=== PATIENT | female | born 1935 | race Asian ===

== ENCOUNTER 2019-02-11 15:45 | Observation (INO) | payer MEDICARE, OTHER ==
[2019-02-11] MEDS ORDERED: ALTEPLASE (CATHFLO) 2 MG INJ CATHETER ×2 (19:00)
[2019-02-11 19:26] LABS: ADD MAN DIFF? NO
[2019-02-11 19:29] LABS: WHITE BLOOD COUNT 7.3 10^3/ul (4.8-10.8)
[2019-02-11 19:29] LABS: BASOPHIL # 0.1 10^3/ul (0.0-0.1); BASOPHILS % 0.7 % (0.0-2.0); EOSINOPHILS # 0.5 10^3/ul (0.0-0.5); EOSINOPHILS % 6.3 % (0.0-7.0); HEMATOCRIT 39.3 % (37.0-47.0); HEMOGLOBIN 12.5 g/dl (12.0-16.0); LYMPHOCYTES # 2.1 10^3/ul (0.8-2.9); LYMPHOCYTES % 28.2 % (15.0-51.0); MEAN CORPUSCULAR HEMOGLOBIN 31.6 pg (29.0-33.0); MEAN CORPUSCULAR HGB CONC 31.8 g/dl (32.0-37.0); MEAN CORPUSCULAR VOLUME 99.5 fl (82.0-101.0); MEAN PLATELET VOLUME 9.5 fl (7.4-10.4); MONOCYTE # 0.6 10^3/ul (0.3-0.9); MONOCYTES % 8.4 % (0.0-11.0); NEUTROPHIL # 4.1 10^3/ul (1.6-7.5); NEUTROPHILS % 55.6 % (39.0-77.0); PLATELET COUNT 165 10^3/UL (140-415); RED BLOOD COUNT 3.95 10^6/ul (4.20-5.40); RED CELL DISTRIBUTION WIDTH 15.8 % (11.5-14.5)
[2019-02-11 19:46] LABS: ANION GAP 10 (5-13); BLOOD UREA NITROGEN 49 mg/dl (7-20); CALCIUM 9.2 mg/dl (8.4-10.2); CARBON DIOXIDE 25 mmol/L (21-31); CHLORIDE 102 mmol/L (97-110); CREATININE 6.32 mg/dl (0.44-1.00); GLUCOSE 217 mg/dl (70-220); SODIUM 137 mmol/L (135-144)
[2019-02-11 19:48] LABS: INR 1.31; PROTIME 16.4 Sec (11.9-14.9); PT RATIO 1.3
[2019-02-11] MEDS ORDERED: ACETAMINOPHEN 325 MG TAB PO (21:00)
[2019-02-11] MEDS ORDERED: ONDANSETRON 4 MG INJ IV (21:00)
[2019-02-12] MEDS ORDERED: NACL 0.9% 3 ML SYG IV
[2019-02-12] MEDS ORDERED: ONDANSETRON 4 MG INJ IV
[2019-02-12] MEDS: FUROSEMIDE 20 MG TAB PO ×3 (00:31→17:47)
[2019-02-12 05:44] LABS: ADD MAN DIFF? NO
[2019-02-12 05:46] LABS: BASOPHIL # 0.1 10^3/ul (0.0-0.1); BASOPHILS % 1.1 % (0.0-2.0); EOSINOPHILS # 0.7 10^3/ul (0.0-0.5); EOSINOPHILS % 10.1 % (0.0-7.0); HEMATOCRIT 38.6 % (37.0-47.0); HEMOGLOBIN 12.4 g/dl (12.0-16.0); LYMPHOCYTES # 1.7 10^3/ul (0.8-2.9); LYMPHOCYTES % 25.3 % (15.0-51.0); MEAN CORPUSCULAR HEMOGLOBIN 31.6 pg (29.0-33.0); MEAN CORPUSCULAR HGB CONC 32.1 g/dl (32.0-37.0); MEAN CORPUSCULAR VOLUME 98.2 fl (82.0-101.0); MONOCYTE # 0.6 10^3/ul (0.3-0.9); NEUTROPHIL # 3.5 10^3/ul (1.6-7.5); NEUTROPHILS % 53.9 % (39.0-77.0); PLATELET COUNT 163 10^3/UL (140-415); RED BLOOD COUNT 3.93 10^6/ul (4.20-5.40); RED CELL DISTRIBUTION WIDTH 15.7 % (11.5-14.5)
[2019-02-12 05:46] LABS: WHITE BLOOD COUNT 6.6 10^3/ul (4.8-10.8)
[2019-02-12] MEDS: PANTOPRAZOLE (EC) 40 MG TAB PO (05:47)
[2019-02-12 06:02] LABS: HEMOGLOBIN A1C 7.6 % (0-5.9)
[2019-02-12 06:21] LABS: ALANINE AMINOTRANSFERASE 16 IU/L (13-69); ALBUMIN 3.4 g/dl (3.3-4.9); ALBUMIN/GLOBULIN RATIO 1.03; ALKALINE PHOSPHATASE 195 IU/L (42-121); ANION GAP 9 (5-13); ASPARTATE AMINO TRANSFERASE 18 IU/L (15-46); BILIRUBIN,INDIRECT 0.2 mg/dl (0-1.1); BILIRUBIN,TOTAL 0.2 mg/dl (0.2-1.3); BLOOD UREA NITROGEN 54 mg/dl (7-20); CARBON DIOXIDE 26 mmol/L (21-31); CHLORIDE 105 mmol/L (97-110); CHOLESTEROL 132 mg/dl (100-200); GLUCOSE 118 mg/dl (70-220); HDL CHOLESTEROL 26 mg/dl (33-92); LDL CHOLESTEROL,CALCULATED 60 mg/dl; POTASSIUM 4.6 mmol/L (3.5-5.1); SODIUM 140 mmol/L (135-144); TOTAL PROTEIN 6.7 g/dl (6.1-8.1); TRIGLYCERIDES 229 mg/dl (0-149)
[2019-02-12] MEDS ORDERED: GLUCOSE GEL 15 GRAM TUBE BUCCAL (07:00)
[2019-02-12] MEDS ORDERED: GLUCOSE GEL 15 GRAM TUBE PO ×2 (07:00)
[2019-02-12] MEDS ORDERED: GLUCAGON 1 MG INJ IM (07:00)
[2019-02-12] MEDS ORDERED: DEXTROSE 50% 50 ML SYRINGE IV ×2 (07:00)
[2019-02-12] MEDS: LINAGLIPTIN 5 MG TABLET PO (08:34)
[2019-02-12] MEDS: MEMANTINE 5 MG TAB PO ×2 (08:34→22:23)
[2019-02-12] MEDS: PREGABALIN 75 MG CAP PO ×2 (08:34→22:22)
[2019-02-12] MEDS: NIFEdipine (XL) 60 MG TAB PO (08:35)
[2019-02-12] MEDS: INSULIN GLARGINE [LANTus] (100 UNITS/ML) SYG SC (08:52)
[2019-02-12] MEDS ORDERED: NON-FORMULARY/PATIENT OWN MED (Esomeprazole Magnesium 40 MG) PO (09:00)
[2019-02-12] MEDS ORDERED: NON-FORMULARY/PATIENT OWN MED (Simvastatin 20 MG) PO (09:00)
[2019-02-12] MEDS ORDERED: INSULIN GLARGINE [LANTus] (100 UNITS/ML) SYG SC (09:00)
[2019-02-12] MEDS ORDERED: FERRIC CITRATE 420 MG PO (09:00)
[2019-02-12] MEDS ORDERED: FENTAnyl 50 MCG/ML VIAL (11:42)
[2019-02-12] MEDS: NA PHOSPHATE/BIPHOS 133 ML ENEMA PR (13:50)
[2019-02-12 16:39] LABS: HEPATITIS B SURFACE ANTIGEN NEGATIVE (NEGATIVE)
[2019-02-12 16:57] LABS: HEPATITIS B SURFACE ANTIBODY POSITIVE (NEGATIVE)
[2019-02-12] MEDS: RIVAROXABAN 15 MG TABLET PO (17:46)
[2019-02-12] MEDS: LIDOCAINE 1% (MPF) 5 ML VIAL SC (20:54)
[2019-02-12] MEDS: ATORVASTATIN 10 MG TAB PO (22:23)
[2019-02-12] MEDS: ACETAMINOPHEN 325 MG TAB PO (23:39)
[2019-02-13] MEDS: PANTOPRAZOLE (EC) 40 MG TAB PO (06:14)
[2019-02-13] MEDS: FUROSEMIDE 20 MG TAB PO ×2 (06:15→18:54)
[2019-02-13 06:56] LABS: ADD MAN DIFF? NO
[2019-02-13 07:08] LABS: WHITE BLOOD COUNT 6.5 10^3/ul (4.8-10.8)
[2019-02-13 07:08] LABS: BASOPHILS % 0.6 % (0.0-2.0); EOSINOPHILS # 0.4 10^3/ul (0.0-0.5); EOSINOPHILS % 6.2 % (0.0-7.0); HEMATOCRIT 36.8 % (37.0-47.0); HEMOGLOBIN 11.7 g/dl (12.0-16.0); LYMPHOCYTES # 1.8 10^3/ul (0.8-2.9); LYMPHOCYTES % 27.3 % (15.0-51.0); MEAN CORPUSCULAR HEMOGLOBIN 31.5 pg (29.0-33.0); MEAN CORPUSCULAR HGB CONC 31.8 g/dl (32.0-37.0); MEAN CORPUSCULAR VOLUME 98.9 fl (82.0-101.0); MEAN PLATELET VOLUME 10.5 fl (7.4-10.4); MONOCYTE # 0.6 10^3/ul (0.3-0.9); MONOCYTES % 9.4 % (0.0-11.0); NEUTROPHIL # 3.6 10^3/ul (1.6-7.5); PLATELET COUNT 160 10^3/UL (140-415); RED BLOOD COUNT 3.72 10^6/ul (4.20-5.40); RED CELL DISTRIBUTION WIDTH 15.4 % (11.5-14.5)
[2019-02-13 07:49] LABS: ANION GAP 12 (5-13); BLOOD UREA NITROGEN 79 mg/dl (7-20); CARBON DIOXIDE 22 mmol/L (21-31); CHLORIDE 103 mmol/L (97-110); GLUCOSE 116 mg/dl (70-220); SODIUM 137 mmol/L (135-144)
[2019-02-13 08:05] LABS: PHOSPHORUS 5.1 mg/dl (2.5-4.9)
[2019-02-13 08:05] LABS: MAGNESIUM 2.9 mg/dl (1.7-2.5)
[2019-02-13] MEDS: MEMANTINE 5 MG TAB PO ×2 (09:00→21:00)
[2019-02-13] MEDS: INSULIN GLARGINE [LANTus] (100 UNITS/ML) SYG SC (09:00)
[2019-02-13] MEDS: NIFEdipine (XL) 60 MG TAB PO (09:00)
[2019-02-13] MEDS: LINAGLIPTIN 5 MG TABLET PO (09:00)
[2019-02-13] MEDS: PREGABALIN 75 MG CAP PO ×2 (09:00→21:00)
[2019-02-13] MEDS ORDERED: ONDANSETRON 4 MG INJ IV (14:30)
[2019-02-13] MEDS ORDERED: HYDROmorphONE 1 MG/5 ML IV SYRINGE IV ×3 (14:30)
[2019-02-13] MEDS ORDERED: FENTAnyl 50 MCG/ML VIAL IV ×3 (14:30)
[2019-02-13] MEDS ORDERED: PROPOFOL 20 ML (14:53)
[2019-02-13] MEDS ORDERED: HEPARIN 1000 UNITS/ML 10 ML INJ (15:04)
[2019-02-13] MEDS: LIDOCAINE 1% (MPF) 30 ML INJ (15:14)
[2019-02-13] MEDS: HEPARIN 1000 UNITS/ML 10 ML INJ (15:14)
[2019-02-13] MEDS: IOHEXOL 300MG/ML 30 ML BTL (15:27)
[2019-02-13] MEDS: RIVAROXABAN 15 MG TABLET PO (18:54)
[2019-02-13] MEDS: ATORVASTATIN 10 MG TAB PO (21:00)
[2019-02-14] MEDS: HEPARIN 1000 UNITS/ML 10 ML INJ CATHETER (01:05)
[2019-02-14] MEDS: PREGABALIN 75 MG CAP PO ×2 (01:24→08:37)
[2019-02-14] MEDS: MEMANTINE 5 MG TAB PO ×2 (01:24→08:33)
[2019-02-14] MEDS: ATORVASTATIN 10 MG TAB PO (01:25)
[2019-02-14 05:10] LABS: ADD MAN DIFF? NO
[2019-02-14 05:14] LABS: BASOPHILS % 0.7 % (0.0-2.0); EOSINOPHILS # 0.3 10^3/ul (0.0-0.5); EOSINOPHILS % 5.4 % (0.0-7.0); HEMATOCRIT 38.9 % (37.0-47.0); HEMOGLOBIN 12.6 g/dl (12.0-16.0); LYMPHOCYTES # 1.4 10^3/ul (0.8-2.9); LYMPHOCYTES % 23.4 % (15.0-51.0); MEAN CORPUSCULAR HEMOGLOBIN 31.7 pg (29.0-33.0); MEAN CORPUSCULAR HGB CONC 32.4 g/dl (32.0-37.0); MEAN PLATELET VOLUME 10.2 fl (7.4-10.4); MONOCYTE # 0.5 10^3/ul (0.3-0.9); MONOCYTES % 8.1 % (0.0-11.0); NEUTROPHIL # 3.7 10^3/ul (1.6-7.5); NEUTROPHILS % 61.4 % (39.0-77.0); PLATELET COUNT 149 10^3/UL (140-415); RED BLOOD COUNT 3.97 10^6/ul (4.20-5.40); RED CELL DISTRIBUTION WIDTH 15.4 % (11.5-14.5)
[2019-02-14 05:14] LABS: WHITE BLOOD COUNT 6.1 10^3/ul (4.8-10.8)
[2019-02-14 05:59] LABS: ANION GAP 11 (5-13); BLOOD UREA NITROGEN 46 mg/dl (7-20); CARBON DIOXIDE 23 mmol/L (21-31); CHLORIDE 103 mmol/L (97-110); GLUCOSE 165 mg/dl (70-220); POTASSIUM 5.2 mmol/L (3.5-5.1); SODIUM 137 mmol/L (135-144)
[2019-02-14] MEDS: PANTOPRAZOLE (EC) 40 MG TAB PO (06:09)
[2019-02-14] MEDS: FUROSEMIDE 20 MG TAB PO ×2 (06:16→17:22)
[2019-02-14] MEDS: LINAGLIPTIN 5 MG TABLET PO (08:33)
[2019-02-14] MEDS: NIFEdipine (XL) 60 MG TAB PO (08:33)
[2019-02-14] MEDS: INSULIN GLARGINE [LANTus] (100 UNITS/ML) SYG SC (08:36)
[2019-02-14] MEDS: ACETAMINOPHEN 325 MG TAB PO (09:42)
[2019-02-14] MEDS ORDERED: morphine 2 MG INJ IV (15:30)
[2019-02-14] MEDS: morphine 2 MG INJ IV (15:34)
[2019-02-14] MEDS: RIVAROXABAN 15 MG TABLET PO (17:22)
== END 2019-02-14 18:40 | disposition home health service (06) ==
LOC: E/R 15:45 → 6WM 20:47
DX: T82.868A Thrombosis due to vascular prosthetic devices, implants and grafts, initial encounter (principal); I13.2 Hypertensive heart and chronic kidney disease with heart failure and with stage 5 chronic kidney disease, or end stage renal disease; E11.22 Type 2 diabetes mellitus with diabetic chronic kidney disease; N18.6 End stage renal disease; I50.9 Heart failure, unspecified; Z99.2 Dependence on renal dialysis; Z79.4 Long term (current) use of insulin; E78.5 Hyperlipidemia, unspecified; Z83.3 Family history of diabetes mellitus; Y83.2 Surgical operation with anastomosis, bypass or graft as the cause of abnormal reaction of the patient, or of later complication, without mention of misadventure at the time of the procedure; Z95.0 Presence of cardiac pacemaker; Z79.01 Long term (current) use of anticoagulants
CPT/HCPCS: 36558; 36561; 36905; 71045; 75820; 76937; 80048; 80053; 80061; 82962; 83036; 83735; 84100; 85025; 85610; 86706; 87340; 90935; 93005; 93926; 97162; 97165; 99285-25; G0378